=== PATIENT | male | born 1950 | race Two or more races ===

== ENCOUNTER 2019-10-14 16:42 | Emergency (ER) | payer SELFPAY ==
[~2019-10-14] VITALS: Ht 167.6 cm; Wt 59.9 kg
--- NOTE | 2019-10-14 18:16 | NUR ---
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
[2019-10-14 18:52] VITALS: BP 184/86
== END 2019-10-14 18:53 | disposition home or self-care (01) ==
LOC: ED 18:47
DX: R30.0 Dysuria (principal); I10 Essential (primary) hypertension; L29.9 Pruritus, unspecified
CPT/HCPCS: 99284